=== PATIENT | female | born 1945 | race Caucasian/White ===

== ENCOUNTER 2023-06-09 06:54 | Day surgery (SDC) | payer OTHER ==
[2023-06-09] VITALS (11 sets, daily range): BP systolic 82–174; BP diastolic 58–87
[~2023-06-09] VITALS: Ht 165.1 cm; Wt 86.0 kg
[~2023-06-09 06:54] MED LIST: BUME1 PO; HYDCHL25 PO; LEVSOD25 PO; POTCHL20ER PO; SPIR50 PO; TRELEGY ELLIPT1 EACH INH; XARELTO20 MG PO
--- NOTE | 2023-06-09 09:36 | NUR ---
PT RETURNED TO RECOVERY ROOM IN RECLINER. RIGHT IJ VENOUS SITE SOFT NON-TENDER WITH NO HEMATOMA, NO BLEEDING, PRESSURE DRESSING AND INTACT DRESSING. PT'S FAMILY IN ROOM. PT DRINKING JUICE AND EATING BREAKFAST. CALL LIGHT IN REACH.
--- NOTE | 2023-06-09 10:23 | NUR ---
NO CHANGES TO R IJ SITE OTHER THAN SOME SORENESS. DISCHARGE INSTRUCTIONS REVIEWED ALL QUESTIONS ANSWERED.
--- NOTE | 2023-06-09 11:13 | NUR ---
NO CHANGES TO R IJ SITE. 22 G IV DICONTINUED FROM L HAND WITH INTACT CANNULA. PT ESCORTED OUT VIA WHEELCHAIR ESCORT.
== END 2023-06-09 14:53 | disposition home or self-care (01) ==
LOC: MHTC 06:54
DX: I27.20 Pulmonary hypertension, unspecified (principal); I48.0 Paroxysmal atrial fibrillation; Z95.0 Presence of cardiac pacemaker; I51.9 Heart disease, unspecified; I36.1 Nonrheumatic tricuspid (valve) insufficiency; J84.9 Interstitial pulmonary disease, unspecified; Z88.5 Allergy status to narcotic agent
CPT/HCPCS: 76937; 93451; C1769; J1644; J7030; J7050

== ENCOUNTER 2024-03-02 10:12 | Day surgery (SDC) | payer OTHER ==
[~2024-03-02] VITALS: Ht 162.6 cm; Wt 88.6 kg
[~2024-03-02 10:12] MED LIST changes: +Atropine Sulfate 0.1 MG/ML 10ML SYR ONE; +Glycopyrrolate 0.2 MG/ML 1MLVIAL ONE; +Lactated Ringer's 1,000 ML IV ONE; +Lidocaine 2% 5 ML SDV ONE; +Lidocaine HCl/Pf 1% 5 ML VIAL ONE; +Methylene Blue 1% 100 MG/10 ML VIAL ONE; +Ondansetron HCl 2 MG / ML 2ML Vial ONE; +ePHEDrine Sulfate 50 MG/ML 1ML Injection ONE
[2024-03-02] MEDS ORDERED: OMEP20ER PO (10:46)
[2024-03-02] MEDS ORDERED: Lactated Ringer's 1,000 ML IV ONE (11:37)
[2024-03-02] MEDS ORDERED: Midazolam HCL 1 MG/ML 5MLVIAL ONE (11:41)
[2024-03-02] MEDS ORDERED: propofoL 40 ML IV ONE (11:41)
[2024-03-02] MEDS ORDERED: Midazolam HCl 1MG / ML 2ML Vial ONE (11:55)
[2024-03-02 13:49] VITALS: BP 177/60
== END 2024-03-02 13:10 | disposition home or self-care (01) ==
LOC: ORSCSDS 10:12
PROVIDERS: Surgery
PROC: 0DJD8ZZ Inspection of Lower Intestinal Tract, Via Natural or Artificial Opening Endoscopic (ICD-10-PCS; principal; 2024-03-02 11:30)
DX: Z12.11 Encounter for screening for malignant neoplasm of colon (principal); K57.30 Diverticulosis of large intestine without perforation or abscess without bleeding; Z95.0 Presence of cardiac pacemaker; J44.9 Chronic obstructive pulmonary disease, unspecified; J45.909 Unspecified asthma, uncomplicated; I10 Essential (primary) hypertension; K21.9 Gastro-esophageal reflux disease without esophagitis; R73.02 Impaired glucose tolerance (oral); I48.0 Paroxysmal atrial fibrillation; Z79.01 Long term (current) use of anticoagulants; Z79.899 Other long term (current) drug therapy
CPT/HCPCS: J0461; J2001; J2250; J2405; J2704; J7120; Q9968

== ENCOUNTER 2024-03-27 09:11 | Day surgery (SDC) | payer OTHER ==
[~2024-03-27] VITALS: Ht 165.1 cm; Wt 88.3 kg
[~2024-03-27 09:11] MED LIST changes: -Atropine Sulfate 0.1 MG/ML 10ML SYR ONE; +Balanced Salt Epinephrine Irrigation Solution 500 mL IR SCH; +FentaNYL Citrate 50 MCG/ML 2 ML Injection ONE; -Glycopyrrolate 0.2 MG/ML 1MLVIAL ONE; -Lactated Ringer's 1,000 ML IV ONE; -Lidocaine 2% 5 ML SDV ONE; -Lidocaine HCl/Pf 1% 5 ML VIAL ONE; +Lidocaine HCl/Pf 1% 5 ML VIAL XX SCH; -Methylene Blue 1% 100 MG/10 ML VIAL ONE; +Midazolam HCl 1MG / ML 2ML Vial ONE; +Moxifloxacin HCL 0.5 MG/0.1 ML 0.4MLSYR RIGHTEYE SCH; +NS 500 ML IV ONE; +OMEP20ER PO; -Ondansetron HCl 2 MG / ML 2ML Vial ONE; +PHENYLEPHRINE\\TROPICAMIDE\\TETRACAINE OPHTHALMIC DILATING SOLN RIGHTEYE PRN; +Povidone-Iodine 450 DROP/30 ML Solution RIGHTEYE SCH; -ePHEDrine Sulfate 50 MG/ML 1ML Injection ONE
[2024-03-27] MEDS ORDERED: NS 500 ML IV ONE (09:27)
--- NOTE | 2024-03-27 09:31 | NUR ---
03/27/24 0931 Huyen Rose TETRACAINE DROP PLACED AT 0922 PLEDGET PLACED AT 0924 PT TOLERATED WELL.
[2024-03-27 11:38] VITALS: BP 146/67
--- NOTE | 2024-03-27 11:39 | NUR ---
03/27/[address] IN TO SPEAK WITH PT
== END 2024-03-27 11:53 | disposition home or self-care (01) ==
LOC: ORSCSDS 09:11
PROVIDERS: Student in an Organized Health Care Education/Training Program
PROC: 08RJ3JZ Replacement of Right Lens with Synthetic Substitute, Percutaneous Approach (ICD-10-PCS; principal; 2024-03-27 10:30)
DX: H25.811 Combined forms of age-related cataract, right eye (principal); Z96.1 Presence of intraocular lens; I48.91 Unspecified atrial fibrillation; K21.9 Gastro-esophageal reflux disease without esophagitis; Z95.0 Presence of cardiac pacemaker; Z79.01 Long term (current) use of anticoagulants; Z79.899 Other long term (current) drug therapy
CPT/HCPCS: J2250; J3010; J7040; V2632

== ENCOUNTER → 2024-07-04 | Outpatient (CLI) | payer OTHER ==
[~2024-07-04] MED LIST changes: -Balanced Salt Epinephrine Irrigation Solution 500 mL IR SCH; -FentaNYL Citrate 50 MCG/ML 2 ML Injection ONE; -Lidocaine HCl/Pf 1% 5 ML VIAL XX SCH; -Midazolam HCl 1MG / ML 2ML Vial ONE; -Moxifloxacin HCL 0.5 MG/0.1 ML 0.4MLSYR RIGHTEYE SCH; -NS 500 ML IV ONE; -PHENYLEPHRINE\\TROPICAMIDE\\TETRACAINE OPHTHALMIC DILATING SOLN RIGHTEYE PRN; -Povidone-Iodine 450 DROP/30 ML Solution RIGHTEYE SCH
== END | disposition home or self-care (01) ==
LOC: LAB 17:37 → LAB SHORT 17:37
DX: N39.0 Urinary tract infection, site not specified (principal)
CPT/HCPCS: 87086

== ENCOUNTER → 2024-08-15 | Outpatient (CLI) | payer MEDICARE ==
[2024-08-15 15:22] LABS: Campylobacter Sp Not Detected (NOT DETECT); Plesiomonas Shigelloides Not Detected (NOT DETECT)
[2024-08-15 15:23] LABS: Adenovirus F 40/41 Not Detected (NOT DETECT); Astrovirus Not Detected (NOT DETECT); Cryptosporidium Not Detected (NOT DETECT); Cyclospora Cayetanensis Not Detected (NOT DETECT); E. Coli O157 Not Detected (NOT DETECT); Entamoeba Histolytica Not Detected (NOT DETECT); Enteroaggregative E. coli-EAEC Not Detected (NOT DETECT); Enteropathogenic E. coli-EPEC Not Detected (NOT DETECT); Enterotoxigenic E. coli-ETEC Not Detected (NOT DETECT); Giardia Lamblia Not Detected (NOT DETECT); Norovirus GI/GII Not Detected (NOT DETECT); Rotavirus A Not Detected (NOT DETECT); Salmonella Sp Not Detected (NOT DETECT); Sapovirus Not Detected (NOT DETECT); Shiga Toxin-prod E. coli-STEC Not Detected (NOT DETECT); Shigella/Enteroin E. coli-EIEC Not Detected (NOT DETECT); Vibrio Cholerae Not Detected (NOT DETECT); Vibrio Sp Not Detected (NOT DETECT); Yersinia Enterocolitica Not Detected (NOT DETECT)
== END ==
LOC: LAB SHORT 11:03 → LAB 11:03
PROVIDERS: Family Medicine
DX: R19.7 Diarrhea, unspecified (principal)
CPT/HCPCS: 87507

== ENCOUNTER → 2024-09-06 | Outpatient (CLI) | payer BC ==
[2024-09-10 23:39] LABS: CALPROTECTIN,FECAL 256 ug/g (<=49)
== END ==
LOC: LAB SHORT 07:45 → LAB 07:45
PROVIDERS: Family Medicine
DX: R19.7 Diarrhea, unspecified (principal)
CPT/HCPCS: 83993

== ENCOUNTER → 2024-09-25 | Outpatient (CLI) | payer MEDICARE ==
[2024-09-29 16:29] LABS: PANCREATIC ELASTASE,FECAL >800 ug/g (>=100)
== END ==
LOC: LAB SHORT 16:00 → LAB 16:00 → LAB FUT 09-24 14:05
PROVIDERS: Physician Assistant
DX: R19.7 Diarrhea, unspecified (principal); R10.30 Lower abdominal pain, unspecified
CPT/HCPCS: 82653

== ENCOUNTER 2024-11-15 05:50 | Day surgery (SDC) | payer MEDICARE ==
[~2024-11-15] VITALS: Ht 164 cm; Wt 90.4 kg
[2024-11-15] VITALS (10 sets, daily range): BP systolic 137–170; BP diastolic 55–97
[~2024-11-15 05:50] MED LIST changes: -BUME1 PO; +BUME2 PO; +FARXIGA5 MG PO; +SYMBICORT 80-10.2 GM INH
[2024-11-15] MEDS ORDERED: Lactated Ringer's 1,000 ML IV SCH (06:15)
[2024-11-15] MEDS ORDERED: CeFAZolin Sodium 2,000 MG in NS 100 ML IV SCH (06:15)
[2024-11-15] MEDS ORDERED: TRANSDERM-SCOP1 EA10 TD (06:28)
[2024-11-15] MEDS ORDERED: Meclizine HCl 25 MG Tab PO STA (06:52)
[2024-11-15] MEDS ORDERED: propofoL 20 ML IV ONE (06:59)
[2024-11-15] MEDS ORDERED: Bupivacaine 0.5% W/EPI 1:200000 SDV 30 ML Vial ONE (07:00)
[2024-11-15] MEDS ORDERED: FentaNYL Citrate 50 MCG/ML 5 ML Injection ONE (07:00)
[2024-11-15] MEDS ORDERED: FentaNYL Citrate 50 MCG/ML 2 ML Injection ONE (07:01)
[2024-11-15] MEDS ORDERED: Rocuronium Bromide 10 MG/ML 5ML Injection IV ONE (07:08)
[2024-11-15] MEDS ORDERED: CeFAZolin Sodium 2,000 MG VIAL ONE (07:08)
[2024-11-15] MEDS ORDERED: Lidocaine HCl 2% 20 ML MDV ONE (07:09)
[2024-11-15] MEDS ORDERED: Tranexamic Acid 100 ML IV ONE (07:51)
[2024-11-15] MEDS ORDERED: Ondansetron HCl 2 MG / ML 2ML Vial ONE ×2 (07:55→09:01)
[2024-11-15] MEDS ORDERED: Metoclopramide HCl 5MG / ML 2ML Vial ONE (07:55)
[2024-11-15] MEDS ORDERED: Sugammadex Sodium 200 MG/2ML SDV (100 MG/ML) ONE (09:23)
[2024-11-15] MEDS ORDERED: HydrALAZINE HCl 20 MG / ML 1ML Vial IV PRN (09:45)
[2024-11-15] MEDS ORDERED: Prochlorperazine Edisylate 10 mg Vial IV PRN (09:45)
[2024-11-15] MEDS ORDERED: Metoclopramide HCl 5MG / ML 2ML Vial IV PRN (09:45)
[2024-11-15] MEDS ORDERED: FentaNYL Citrate 50 MCG/ML 2 ML Injection IV PRN ×2 (09:45→09:50)
[2024-11-15] MEDS ORDERED: HYDROmorphone HCl/Pf 1MG SYR IV PRN ×2 (09:45)
[2024-11-15] MEDS ORDERED: OxyCODONE 5 mg/Acetamin 325 mg TABLET PO PRN (10:10)
--- NOTE | 2024-11-15 10:20 | NUR ---
REPORT RECEIVED FROM TERESA PEOPLES. VSS. PT ON 2L SUPPLEMENTAL O2 VIA NC. PT A&OX4. PT ABLE TO REPOSITION SELF IN BED. PT REQUESTING PO FLUIDS AND TOLERATING THEM WELL. PT REPORTS 3/10 ACHING PAIN TO ABD THAT SHE REPORTS IS TOLERABLE. PT DENIES NAUSEA OR OTHER DISCOMFORTS. PT HAS 3 SURGICAL SITES TO ABDOMEN THAT ARE COVERED WITH EXOFEN AND CDI.
--- NOTE | 2024-11-15 10:56 | NUR ---
Patient up to Ambulate independently. Gait steady. VSS AND CONSISTENT WITH PT BASELINE. PT HAS NO COMPLAINTS, REPORTS PAIN IS TOLERABLE AND SHE DOES NOT NEED MEDICATION. PT VERBALIZES READINESS TO GO HOME. Discharge instructions reviewed with patient AND HER SPOUSE. Patient verbalizes understanding. Copy given to patient to take home. Dressing to procedure site clean, dry, intact with no visible drainage, swelling, erythema or bruising noted. Discharged via wheelchair to private car for ride home. PT BELONGINGS RETURNED TO PT.
== END 2024-11-15 10:56 | disposition home or self-care (01) ==
LOC: ORSCMMR 05:50 → ORD 07:30 → ORSCMMR 07:30
PROVIDERS: Obstetrics & Gynecology
PROC: 8E0W4CZ Robotic Assisted Procedure of Trunk Region, Percutaneous Endoscopic Approach (ICD-10-PCS; principal; 2024-11-15 07:30)
PROC: 0UT2FZZ Resection of Bilateral Ovaries, Via Natural or Artificial Opening With Percutaneous Endoscopic Assistance (ICD-10-PCS; principal; 2024-11-15 07:30)
PROC: 0UT7FZZ Resection of Bilateral Fallopian Tubes, Via Natural or Artificial Opening With Percutaneous Endoscopic Assistance (ICD-10-PCS; principal; 2024-11-15 07:30)
DX: R19.00 Intra-abdominal and pelvic swelling, mass and lump, unspecified site (principal); C57.01 Malignant neoplasm of right fallopian tube; D27.0 Benign neoplasm of right ovary; D27.1 Benign neoplasm of left ovary; R10.2 Pelvic and perineal pain; I48.91 Unspecified atrial fibrillation; Z79.01 Long term (current) use of anticoagulants; I10 Essential (primary) hypertension; Z95.0 Presence of cardiac pacemaker; Z79.899 Other long term (current) drug therapy; J45.909 Unspecified asthma, uncomplicated; E78.5 Hyperlipidemia, unspecified; E03.9 Hypothyroidism, unspecified; H81.09 Meniere's disease, unspecified ear
CPT/HCPCS: 36415; 86850; 86900; 86901; 88108; 88305; A9270; J0690; J2405; J2704; J2765; J3010; J7120

== ENCOUNTER 2025-01-21 06:01 | Day surgery (SDC) | payer MEDICARE ==
[~2025-01-21] VITALS: Ht 162.6 cm; Wt 88.3 kg
[2025-01-21] VITALS (7 sets, daily range): BP systolic 116–186; BP diastolic 61–101
[~2025-01-21 06:01] MED LIST changes: +ALBU90OI INH; +FARXIGA10 MG PO; -FARXIGA5 MG PO; +FISH OIL 1,0001 EA10 PO; +LACT10SY PO; +MIRALAX11910 PO; +RED YEAST RICE55 MG PO; +TRANSDERM-SCOP1 EA10 TD
[2025-01-21] MEDS ORDERED: CeFAZolin Sodium 2,000 MG in NS 100 ML IV SCH (06:20)
[2025-01-21] MEDS ORDERED: Lactated Ringer's 1,000 ML IV SCH (06:20)
--- NOTE | 2025-01-21 06:29 | NUR ---
Ambulatory in Day SurgeryPre-Op teaching done. Pt verbalizes understanding. History, Chart, Medications and Allergies reviewed before start of procedure.Patient confirms NPO status and agrees with scheduled surgery. Patient reports completing Chlorhexadine shower X2 prior to admission to hospital.Patient States Post-Procedure ride home has been arranged.
[2025-01-21] MEDS ORDERED: TRANSDERM-SCOP1 EA13 (06:52)
[2025-01-21] MEDS ORDERED: FentaNYL Citrate 50 MCG/ML 2 ML Injection ONE (06:55)
[2025-01-21] MEDS ORDERED: propofoL 40 ML IV ONE (06:55)
[2025-01-21] MEDS ORDERED: Lidocaine HCL 1% 10 ML MDV ONE (07:06)
[2025-01-21] MEDS ORDERED: Bupivacaine 0.5% HCl 5 MG/ML 30MLVIAL ONE (07:06)
[2025-01-21] MEDS ORDERED: Phenylephrine HCl 100 MCG/ML-NS 10MLSYR (1MG/10ML) ONE (07:34)
[2025-01-21] MEDS ORDERED: HydrALAZINE HCl 20 MG / ML 1ML Vial IV PRN (08:45)
[2025-01-21] MEDS ORDERED: Ondansetron HCl 2 MG / ML 2ML Vial IV PRN (08:45)
[2025-01-21] MEDS ORDERED: Metoclopramide HCl 5MG / ML 2ML Vial IV PRN (08:45)
[2025-01-21] MEDS ORDERED: Albuterol 2.5 MG/3 ML VIAL INH PRN (08:45)
[2025-01-21] MEDS ORDERED: Ketorolac Tromethamine 30mg Vial IV PRN (08:50)
[2025-01-21] MEDS ORDERED: Ketorolac Tromethamine 15mg Vial IV PRN (08:50)
--- NOTE | 2025-01-21 09:23 | NUR ---
Discharge instructions reviewed with patient. Patient verbalizes understanding. Copy given to patient to take home. AT BEDSIDE. DRG X2 C/D/I. DENIES PAIN. DENIES NEED FOR ANYTHING TO DRINK. DRESSED AND ESCORTED OUT VIA W/C.
== END 2025-01-21 09:27 | disposition home or self-care (01) ==
LOC: ORSCMMR 06:01 → ORD 07:30 → ORSCMMR 09:27
PROVIDERS: Surgery
PROC: 05HM33Z Insertion of Infusion Device into Right Internal Jugular Vein, Percutaneous Approach (ICD-10-PCS; principal; 2025-01-21 07:30)
PROC: 0JH63WZ Insertion of Totally Implantable Vascular Access Device into Chest Subcutaneous Tissue and Fascia, Percutaneous Approach (ICD-10-PCS; principal; 2025-01-21 07:30)
PROC: B543ZZA Ultrasonography of Right Jugular Veins, Guidance (ICD-10-PCS; principal; 2025-01-21 07:30)
DX: C56.1 Malignant neoplasm of right ovary (principal); I10 Essential (primary) hypertension; E11.9 Type 2 diabetes mellitus without complications; K21.9 Gastro-esophageal reflux disease without esophagitis; I48.0 Paroxysmal atrial fibrillation; Z79.01 Long term (current) use of anticoagulants; I25.10 Atherosclerotic heart disease of native coronary artery without angina pectoris; Z79.899 Other long term (current) drug therapy; E66.9 Obesity, unspecified; Z68.33 Body mass index [BMI] 33.0-33.9, adult; G47.33 Obstructive sleep apnea (adult) (pediatric); I50.9 Heart failure, unspecified; J44.9 Chronic obstructive pulmonary disease, unspecified; E03.8 Other specified hypothyroidism; E78.5 Hyperlipidemia, unspecified
CPT/HCPCS: 77001; C1788; J0690; J1642; J2003; J2371; J2704; J3010; J7120

== ENCOUNTER → 2025-05-17 | Outpatient (CLI) | payer MEDICARE ==
[~2025-05-17] MED LIST changes: +TRANSDERM-SCOP1 EA13
== END ==
LOC: LAB 12:10 → LAB SHORT 12:10
DX: N39.0 Urinary tract infection, site not specified (principal)
CPT/HCPCS: 87077; 87086; 87186